=== PATIENT | female | born 1935 | race Caucasian/White ===

== ENCOUNTER 2018-01-31 13:09 | Emergency (ER) | payer MEDICARE, OTHER ==
[2018-01-31 13:39] VITALS: BP 144/77
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
== END 2018-01-31 15:15 | disposition home or self-care (01) ==
LOC: UCEAST 13:09
DX: L03.116 Cellulitis of left lower limb (principal); E78.5 Hyperlipidemia, unspecified; I10 Essential (primary) hypertension; Z88.0 Allergy status to penicillin
CPT/HCPCS: 99212; G0463